=== PATIENT | female | born 1950 | race Caucasian/White ===

== ENCOUNTER 2017-05-19 08:55 | Day surgery (SDC) | payer MEDICARE ==
[2017-05-18 13:12] VITALS: BMI 18.1
[2017-05-19] MEDS ORDERED: Midazolam HCl 2 mg/2 ml Vial ONE (11:10)
[2017-05-19] MEDS ORDERED: Fentanyl 100 MCG/2 ML VIAL ONE (11:29)
[2017-05-19] MEDS ORDERED: Bacitracin Zinc Ointment 30 gm TUBE ONE (11:32)
[2017-05-19] MEDS ORDERED: PHENYLEPHRINE-NS 100 MCG/ML 10 ML SYRINGE ONE (11:55)
[2017-05-19] MEDS ORDERED: Propofol 200 MG/20 ML VIAL ONE (11:55)
[2017-05-19] MEDS ORDERED: Ondansetron HCl/PF 4 MG/2 ML Vial ONE (11:55)
[2017-05-19] MEDS ORDERED: Lidocaine 2% PF 10 ML AMP (For Epidural Use) ONE (11:55)
[2017-05-19] MEDS ORDERED: ePHEDrine/0.9% NaCl/PF SYRINGE 50 mg/10 ml ONE (11:55)
[2017-05-19] MEDS ORDERED: Dexamethasone 20 MG/5 ML VIAL ONE (11:55)
[2017-05-19] MEDS ORDERED: Succinylcholine Chloride 20 MG/ML 10 ml SYRINGE FS ONE (11:55)
--- NOTE | 2017-05-20 09:45 | OP ---
DATE OF PROCEDURE: 05/19/2017 PREOPERATIVE DIAGNOSIS: Right parotid mass. POSTOPERATIVE DIAGNOSIS: Right parotid mass. PROCEDURE: Right superficial parotidectomy with intraoperative facial nerve monitor. SURGEON: Sandro Peacock M.D. ESTIMATED BLOOD LOSS: 5 mL COMPLICATIONS: None. ANESTHESIA: GETA. DESCRIPTION OF PROCEDURE: The patient was taken to the operating room and placed supine on the tabl e. General endotracheal anesthesia was obtained by the Anesthesia staff. Tube was secured in the l eft lower lip and the head of bed was turned to exposing the right parotid gland. The patient was t hen prepped and draped in standard surgical fashion after confirming adequate placement of the facia l nerve monitor electrodes into the orbicularis primitivo and orbicularis oculi muscles. Following this, a modified Roberto-type incision was made from approximately the level of the trachea and extending a round the earlobe and onto the neck approximately 2-3 cm . This incision was carried through s kin and subcutaneous tissues. Subcutaneous flaps were carried over the parotid gland as the parotid mass was identified and was noted to be in the extreme tail of the parotid gland and was just infer ior to a line dissecting the angle of the mandible in the mastoid tip. Dissection was carried immed iately around this area. There was noted to be a previous stitch present from a rhinoplasty procedu re. There was a large stitch abscess and granuloma and scar process that was encompassing this mass , staying immediately adjacent to the scar band capsule and monitoring the marginal mandibular nerve . This area along within normal piece of parotid tissue was excised. Following this, the wound was irrigated and then closed using Monocryl stitches and chromic stitch . The patient tolerated the procedure well. Intraoperative nerve monitor was then turned off. The patient was taken to the recovery room in stable condition.
--- NOTE | 2017-05-21 15:59 | EKG ---
Test Reason : PREOP Blood Pressure : / mmHG Vent. Rate : 065 BPM Atrial Rate : 065 BPM P-R Int : 130 ms QRS Dur : 094 ms QT Int : 416 ms P-R-T Axes : 060 055 054 degrees QTc Int : 432 ms Normal sinus rhythm Voltage criteria for left ventricular hypertrophy Abnormal ECG No previous ECGs available Confirmed by DR. Monique SCHMITT ([id number]) on 05/21/2017 3:59:08 PM Referred By: [email or web address] Confirmed By:DR. Monique SCHMITT
== END 2017-05-19 14:43 | disposition home or self-care (01) ==
LOC: SDC 08:55
PROVIDERS: ATTEND Otolaryngology Plastic Surgery within the Head & Neck
PROC: 0CB80ZZ Excision of Right Parotid Gland, Open Approach (ICD-10-PCS; principal; 2017-05-19)
DX: K11.20 Sialoadenitis, unspecified (principal); I10 Essential (primary) hypertension; E78.5 Hyperlipidemia, unspecified; E03.9 Hypothyroidism, unspecified; M81.0 Age-related osteoporosis without current pathological fracture; Z79.82 Long term (current) use of aspirin; Z79.899 Other long term (current) drug therapy; Z98.51 Tubal ligation status; Z98.890 Other specified postprocedural states
CPT/HCPCS: 87070; 87102; 87205; 87206; 88305; 88312; 93005; 93010; J1100; J2001; J2250; J2405; J2704; J3010